=== PATIENT | female | born 1980 | race Caucasian/White ===

== ENCOUNTER 2019-05-12 12:05 | Emergency (ER) | payer SELFPAY ==
[2019-05-12 12:10] VITALS: BP 158/110; PULSE 107; RESP 17; TEMP 36.7; O2SAT 97; BMI 30.9
--- NOTE | 2019-05-12 12:16 | XR_ITS ---
WS: [id number] XR chest 1V portable [id number] REASON FOR EXAM: fever FINDINGS: The heart and mediastinal interfaces are normal. Off the left hilum there is calcified granulomas. The peripheral lung show normal aeration. There is no pneumonia, pleural effusion, pulmonary edema, p neumothorax, or mass effect. The hilum and apices normal. No osseous abnormalities. XR/XR chest 1V portable [id number] IMPRESSION: Negative chest for active cardiopulmonary disease.
--- NOTE | 2019-05-12 12:17 | W.ED.URI ---
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 Patient states over the last 3 to 5 days she has had cough along with fever and congestion. She denies any worsening improving factors. Patient's children have been sick with similar illness. MD elicited complaint: cough and sore throat Onset (ago): day(s) Consistency: constant Severity: mild Exacerbating factors: nothing Associated symptoms: Reports fever(s); Deny abdominal pain, chest pain, diarrhea, headache(s), nausea or vomiting Review of Systems Const: Reports: fever Eyes: Denies: blurry vision or eye discomfort ENMT: Denies: throat pain or dental pain Card: Denies: chest pain Resp: Reports: non-productive cough GI: Denies: abdominal pain, nausea, vomiting or diarrhea : Denies: painful urination Musc: Denies: neck pain or back pain Skin/Breast: Denies: rash Neuro: Denies: headache Psych: Denies: depression Ponce/Lymph: Denies: easy bruising All/Imm: Denies: hives PFSH ED PFSH: Social History Smoking and tobacco status: never smoked Physical Exam Const: COMMON NORMALS: no apparent distress, oriented x3 and healthy appearing HENMT: COMMON NORMALS: normocephalic and head/scalp atraumatic HEAD & SCALP: normocephalic and atraumatic Eye: COMMON NORMALS: PERRL and EOMs intact bilaterally PUPIL: Yes PERRL Neck/C-Spine: COMMON NORMALS: full ROM and supple Chest: COMMONS NORMALS: inspection of chest normal and palpation of chest normal Resp: COMMON NORMALS: normal respiratory effort, no retractions, no use of accessory muscles and clear to auscultation bilaterally AUSCULTATION: clear to auscultation bilaterally Cardio: COMMON NORMALS: regular rhythm and no murmurs RATE: tachycardic RHYTHM: regular rhythm GI: COMMON NORMALS: normal to inspection, nondistended, normoactive bowel sounds, soft to palpation, non-tender and no masses PALPATION: Yes soft Extremity: COMMON NORMALS: normal to inspection and full ROM Neuro: COMMON NORMALS: oriented x3, moves all extremities and no focal motor deficits Psych: COMMON NORMALS: mental status grossly normal, thought process normal and cooperative THOUGHT PROCESS: normal thought process Skin: COMMON NORMALS: no rashes or lesions noted and no wounds GENERAL SKIN EXAM: no rashes or lesions noted Course Vital Signs: Vital signs: Vital Signs Temperature 98.0 F 05/12/19 12:10 Pulse Rate 98 05/12/19 13:54 Respiratory Rate 17 05/12/19 13:54 Blood Pressure 145/80 05/12/19 13:54 Pulse Oximetry 97 05/12/19 13:54 MDM - URI/Sore Throat MDM Narrative: Medical decision making narrative: Patient presents with cough and fever that is likely viral in origin. She is currently on antibiotics to treat possible pneumonia. Patient is well-appearing here and is in no distress and does not require oxygen. She was questioning coronavirus testing but she does not meet the criteria at this time. I did inform her she needs to self quarantine for 2 weeks and return to the ER if she has any worsening symptoms. She understands and agrees to this plan. Lab Data: Labs: Lab Results 05/12/19 05/12/19 05/12/19 Range/Units 12:25 12:34 12:34 WBC 14.3 H (4.0-10.0) 10^3/ uL RBC 5.01 (4.1-5.3) 10^6/u L Hgb 14.6 (11.5-15.3) g/dL Hct 44.7 (37.0-47.0) % MCV 89.2 (81-99) fL MCH 29.1 (28.0-34.0) pg MCHC 32.7 (30.0-36.0) g/dL RDW 12.3 (12.1-15.1) % Plt Count 448 H (130-400) 10^3/c mm MPV 10.1 (7.4-10.4) fL Neut % (Auto) 87.6 % Lymph % (Auto) 9.4 % Colbert % (Auto) 1.7 % Eos % (Auto) 0.0 % Baso % (Auto) 0.3 % Neut # (Auto) 12.5 H (1.8-7.7) 10^3/u L Lymph # (Auto) 1.4 (0.8-4.8) 10^3/u L Colbert # (Auto) 0.3 (0.2-0.9) 10^3/u L Eos # (Auto) 0.0 (0.0-0.8) 10^3/u L Baso # (Auto) 0.0 (0.0-0.1) 10^3/u L Nucleated RBC % (a uto) 0 % Nucleated RBCs # 0.0 /100WBC Sodium 139 (136-145) mmol/L Potassium 4.2 (3.5-5.1) mmol/L Chloride 101 (98-107) mmol/L Carbon Dioxide 25 (22-29) mmol/L Anion Gap 17.2 (5-19) BUN 12 (6-20) mg/dL Creatinine 0.7 (0.5-0.9) mg/dL GFR Calculation 94.7 (90-130) mL/min Glucose 167 H (65-115) mg/dL Calculated Osmolal ity 288 (285-295) mOsm/k g Calcium 9.9 (8.5-10.5) mg/dL Influenza Type A A g Negative (Negative) POC Influenza B Ag Negative (Negative) Imaging Data^: CXR: Attestation: I personally reviewed and interpreted this imaging study as follows: Radiologist's impression: [address] [address] XRay Report Signed Patient: Shelby Armstrong Unit #: [id number] : 1980 Age/Sex: 38 / F ADM Date: 05/12/19 Loc: ER Room/Bed: Attending Dr: Ordering Provider/Ordering MD: Tom Cabral MD Date of Service: 05/12/19 Procedure(s): XR chest 1V portable [id number] Accession Number(s): [id number] Report Number: [id number] WS: [id number] XR chest 1V portable [id number] REASON FOR EXAM: fever FINDINGS: The heart and mediastinal interfaces are normal. Off the left hilum there is calcified granulomas. The peripheral lung show normal aeration. There is no pneumonia, pleural effusion, pulmonary edema, pneumothorax, or mass effect. The hilum and apices normal. No osseous abnormalities. XR/XR chest 1V portable [id number] IMPRESSION: Negative chest for active cardiopulmonary disease. Discharge Plan Discharge Patient Disposition: Home, Self-Care Clinical Impression: Upper respiratory infection Qualifiers: URI type: unspecified URI Qualified Code(s): J06.9 - Acute upper respiratory infection, unspecified Condition: Stable Discharge Orders: Discharge Order (Routine); Ordered 05/12/19 Ordered By: Tom Cabral Referrals: Carlos Jeronimo MD [Family Provider] - 1-3 days Discharge Diet: Advance as tolerated Discharge Activity: Resume usual activity Patient Instructions: Upper Respiratory Infection (ED) Stand Alone Forms: Work/School Release Discharge Date/Time: 05/12/19 13:55 Coding Level of Care Code ED Repossession Agent for Chg Fwd Exam Comprehensive
[2019-05-12 12:29] VITALS: O2SAT 98
--- NOTE | 2019-05-12 12:35 | PC.NURSE ---
Patient refused IV and fluids at this time
[2019-05-12 12:49] LABS: Basophils % 0.3 %; Hematocrit 44.7 % (37.0-47.0); Hemoglobin 14.6 g/dL (11.5-15.3); Lymphocytes # 1.4 10^3/uL (0.8-4.8); Lymphocytes % 9.4 %; Mean Corpuscular HGB Conc 32.7 g/dL (30.0-36.0); Mean Corpuscular Hemoglobin 29.1 pg (28.0-34.0); Mean Corpuscular Volume 89.2 fL (81-99); Mean Platelet Volume 10.1 fL (7.4-10.4); Monocytes # 0.3 10^3/uL (0.2-0.9); Monocytes % 1.7 %; Neutrophils # 12.5 10^3/uL (1.8-7.7); Neutrophils % 87.6 %; Nucleated Red Blood Cells % 0 %; Platelet Count 448 10^3/cmm (130-400); Red Blood Count 5.01 10^6/uL (4.1-5.3); Red Cell Distribution Width 12.3 % (12.1-15.1); White Blood Count 14.3 10^3/uL (4.0-10.0)
[2019-05-12 13:03] LABS: Anion Gap 17.2 (5-19); Blood Urea Nitrogen 12 mg/dL (6-20); Calcium 9.9 mg/dL (8.5-10.5); Carbon Dioxide 25 mmol/L (22-29); Chloride 101 mmol/L (98-107); Glomerular Filtration Rate 94.7 mL/min (90-130); Glucose 167 mg/dL (65-115); Osmolality Calculated 288 mOsm/kg (285-295); Potassium 4.2 mmol/L (3.5-5.1); Sodium 139 mmol/L (136-145)
[2019-05-12 13:08] LABS: Influenza A by IFA Negative (Negative); Influenza B by IFA Negative (Negative)
[2019-05-12 13:54] VITALS: BP 145/80; PULSE 98; RESP 17; O2SAT 97
== END 2019-05-12 13:55 | disposition home or self-care (01) ==
PROVIDERS: Emergency Provider Emergency Medicine; Family Provider Obstetrics & Gynecology
DX: J06.9 Acute upper respiratory infection, unspecified (principal)
CPT/HCPCS: 12345; 36415; 71045; 80048; 85025; 87804; 96360; 99282; 99283

== ENCOUNTER 2021-12-17 08:26 | Day surgery (SDC) | payer BC, SELFPAY ==
[2021-12-15 10:15] VITALS: BMI 35.4
[2021-12-17 08:50] VITALS: BP 159/107; PULSE 107; RESP 18; TEMP 37.1; O2SAT 98
[2021-12-17] MEDS: sodium chloride 0.9% 1,000 ML 30 ML IV (09:00)
[2021-12-17 09:06] LABS: OR HCG Qualitative Urine Negative (Negative)
--- NOTE | 2021-12-17 10:03 | ANES.PREANE2 ---
Pre-Anesthetic Assessment Height/Weight: Height 1.6 m Weight 90.718 kg Temp Pulse Resp BP Pulse Ox O2 Del Method 98.7 F 107 H 18 159/107 98 12/17/21 08:50 12/17/21 08:50 12/17/21 08:50 12/17/21 08:50 12/17/21 08:50 12/17/21 08:50 Operation Date: 12/17/21 09:45 Proposed Procedures p EGD and Colonoscopy [id number],R19.7,K59.00,r11,R10.9(Not Applicable) - DO jalil Berry Colonoscopy(Not Applicable) - Bennett Yuan DO Familial anesthetic complications: none Was Beta Cece taken within 24 hours: N/A Was Clonidine taken within 24 hours: N/A Last intake: Intake Last Liquid Date 12/16/21 Last Liquid Time 23:00 Last Solid Date 12/15/21 Last Solid Time 23:00 Social No alcohol and No tobacco Exam alert, oriented x 3, clear to auscultation bilaterally and regular rate & rhythm Airway Submandibular: within normal limits Cervical ROM: within normal limits Mallampati: Class II Dentition: full History/ROS No significant history except as noted Neuropsych Anxiety and Depression Anesthetic Plan ASA status: 2 Anesthesia: MAC Medications/Allergies Home Medications Medication Instructions Recorded Confirmed Last Taken Type alprazolam 0.5 mg tablet (Xanax) 0.5 mg PO BID PRN Anxiety 09/26/21 12/15/21 Unknown History bupropion HCl 100 mg tablet,12 hr 100 mg PO BID 09/26/21 12/15/21 Unknown History sustained-release (Wellbutrin SR) probiotic 1 tab PO DAILY 09/26/21 12/15/21 Unknown History psyllium husk 0.4 gram capsule 0.4 g PO DAILY 09/26/21 12/15/21 Unknown History (Metamucil) multivitamin 1 tab PO DAILY 12/15/21 12/15/21 Unknown History multivitamin 1 tab PO DAILY 12/15/21 12/15/21 Unknown History Allergies Allergy/AdvReac Type Severity Reaction Status Date / Time No Known Allergies Allergy Verified 09/26/21 09:15 Current Medications Generic Name Dose Route Start Last Admin Trade Name Freq PRN Reason Stop Dose Admin Sodium Chloride 1,000 mls @ 30 mls/hr 12/17/21 09:00 12/17/21 09:00 Sodium Chloride 0.9% IV 12/18/21 08:59 30 mls/hr .Q24H SNEHAL Administration PFSH Anesthesia Medical History (Updated 09/26/21 @ 09:39 by Bennett Yuan DO) Abdominal pain Depression Nausea Surgical History History of dental surgery Hx of tonsillectomy Family History Unknown Cancer Diabetes Social History Smoking and tobacco status: never smoked Female Reproductive History Date of last menstrual period: 11/08/21 Data Anesthesia Cardiac Studies: No Data to Display
--- NOTE | 2021-12-17 10:26 | P.HP_ITS ---
Providers/Chief Complaint Chief Complaint: diarrhea, unspecified History of Present Illness Shelby Armstrong is a 41 year old female here for EGD and colonoscopy Medications/Allergies Home Medications Medication Instructions Recorded Confirmed Last Taken Type alprazolam 0.5 mg tablet (Xanax) 0.5 mg PO BID PRN Anxiety 09/26/21 12/15/21 Unknown History bupropion HCl 100 mg tablet,12 hr 100 mg PO BID 09/26/21 12/15/21 Unknown History sustained-release (Wellbutrin SR) probiotic 1 tab PO DAILY 09/26/21 12/15/21 Unknown History psyllium husk 0.4 gram capsule 0.4 g PO DAILY 09/26/21 12/15/21 Unknown History (Metamucil) multivitamin 1 tab PO DAILY 12/15/21 12/15/21 Unknown History multivitamin 1 tab PO DAILY 12/15/21 12/15/21 Unknown History Allergies Allergy/AdvReac Type Severity Reaction Status Date / Time No Known Allergies Allergy Verified 09/26/21 09:15 PFSH Acute PFSH: Medical History (Updated 09/26/21 @ 09:39 by Bennett Yuan DO) Abdominal pain Depression Nausea Surgical History History of dental surgery Hx of tonsillectomy Family History Unknown Cancer Diabetes Social History Smoking and tobacco status: never smoked Female Reproductive History: Date of last menstrual period: 11/08/21 Vitals/I&O/Wt Last Vital Signs Temp 98.7 F 12/17/21 08:50 Pulse 107 H 12/17/21 08:50 Resp 18 12/17/21 08:50 BP 159/107 12/17/21 08:50 Pulse Ox 98 12/17/21 08:50 O2 Del Method 12/17/21 08:50 A&P Assessment and plan (1) Diarrhea: (2) Constipation: (3) Nausea: (4) Abdominal pain: Plan EGD and colonoscopy Attestations Medical Necessity Statement*: Home Coding Level of Care Code Acute Sp[facility] Hand for [facility] Fwd Diagnoses Diarrhea R19.7 Constipation K59.00 Nausea R11.0 Abdominal pain R10.9
[2021-12-17 11:04] VITALS: BP 110/91; PULSE 105; RESP 18; TEMP 36.1; O2SAT 97
[2021-12-17 11:13] VITALS: BP 110/82; PULSE 98; RESP 18; TEMP 36.6; O2SAT 98
--- NOTE | 2021-12-17 17:45 | ANE.PACU2 ---
Inpatient post-anesthesia follow up: Airway intact: Yes Vital signs: Temperature 98 F Pulse Rate 98 Respiratory Rate 18 Blood Pressure 110/82 Pulse Oximetry 98 Oxygen Delivery Me thod Room Air Oxygen Flow Rate Fraction of Inspir ed Oxygen Hydration adequate: Yes Nausea and vomiting: No Pain level: 1 Mental status: Baseline
== END 2021-12-17 11:34 | disposition home or self-care (01) ==
PROVIDERS: Anesthesiology; Visit Provider Surgery
PROC: 0DJ08ZZ Inspection of Upper Intestinal Tract, Via Natural or Artificial Opening Endoscopic (ICD-10-PCS; CPT 43235; principal; 2021-12-17 09:45)
PROC: 0DJD8ZZ Inspection of Lower Intestinal Tract, Via Natural or Artificial Opening Endoscopic (ICD-10-PCS; CPT 45378; 2021-12-17 09:45)
DX: K52.9 Noninfective gastroenteritis and colitis, unspecified (principal); K59.00 Constipation, unspecified; R11.10 Vomiting, unspecified; R10.9 Unspecified abdominal pain; K57.30 Diverticulosis of large intestine without perforation or abscess without bleeding; K29.50 Unspecified chronic gastritis without bleeding
CPT/HCPCS: 43239; 45380; 81025; 82274; 83630; 84703; 87493; 87506; 88305; J2704; J7030

== ENCOUNTER 2022-02-18 07:39 | Outpatient (CLI) | payer BC, SELFPAY ==
--- NOTE | 2022-02-18 08:00 | NM_ITS ---
WS: [id number] NUCLEAR MEDICINE HIDA SCAN CLINICAL INFORMATION: abd pain TECHNIQUE: Following intravenous administration of 7.6 mCi of technetium 99m mebrofenin, images of th e abdomen were obtained over the course of 60 minutes. Next, gallbladder ejection fraction was determ ined by obtaining preprandial and one-hour postprandial images of the gallbladder following oral live stion of Ensure. COMPARISON: None. FINDINGS: Normal hepatic uptake at 5 minutes. Gallbladder is visualized by 10 minutes. No evidence of acute cho lecystitis. Normal hepatic excretion. Normal common bile duct and small bowel activity. Gallbladder ejection fraction 91% within normal limits. No evidence of chronic cholecystitis. NM/NM hepatobiliary w phar* [id number] IMPRESSION: 1. No evidence of acute or chronic cholecystitis. 2. Gallbladder ejection fraction 91% within normal limits.
== END 2022-02-18 07:40 | disposition home or self-care (01) ==
LOC: RAD 07:43
PROVIDERS: PCP Nurse Practitioner Family; Visit Provider Surgery
DX: R10.9 Unspecified abdominal pain (principal)
CPT/HCPCS: 78227; A9537

== ENCOUNTER → 2023-07-14 10:32 | Outpatient (BNVA) | payer BC, SELFPAY | PROVIDERS: PCP Nurse Practitioner Family; Visit Provider Obstetrics & Gynecology | DX: R89.6 Abnormal cytological findings in specimens from other organs, systems and tissues (principal) | CPT/HCPCS: 76830 ==

== ENCOUNTER → 2023-07-21 07:40 | Outpatient (BNVA) | payer BC, SELFPAY | PROVIDERS: PCP Nurse Practitioner Family; Visit Provider Obstetrics & Gynecology | DX: R87.619 Unspecified abnormal cytological findings in specimens from cervix uteri (principal) | CPT/HCPCS: 81025; 88305 ==